=== PATIENT | female | born 1965 | race Caucasian/White ===

== ENCOUNTER 2023-05-20 10:17 | Emergency (ER) | payer BC, SELFPAY ==
[2023-05-20 10:19] VITALS: BP 190/107; PULSE 95; RESP 28; TEMP 35.6; O2SAT 100; BMI 39.0
--- NOTE | 2023-05-20 11:13 | EKG12_ITS ---
Test Reason : HYPERTENSON Blood Pressure : / mmHG Vent. Rate : 078 BPM Atrial Rate : 078 BPM P-R Int : 178 ms QRS Dur : 088 ms QT Int : 420 ms P-R-T Axes : 030 -02 019 degrees QTc Int : 478 ms Normal sinus rhythm Normal ECG Confirmed by MATTHEW BORRERO, FELIPE ([id number]), research editor MAGGIE VALDEZ ([id number]) on 05/22/2023 1:56:42 PM Referred By: JIM Confirmed By:FELIPE CASTRO MD
--- NOTE | 2023-05-20 11:16 | NURSING ---
NO OLD EKGS
[2023-05-20] MEDS: cloNIDine HCl 0.1 MG Tablet PO ×2 (11:30→12:46)
[2023-05-20] MEDS: LORazepam 2 MG/ML Syringe 0.5 MG IV (11:30)
--- NOTE | 2023-05-20 11:30 | RAD_ITS ---
STUDY: X-RAY CHEST REASON FOR EXAM: Female, 58 years old. Hypertension. TECHNIQUE: Single frontal view of the chest. COMPARISON: None. FINDINGS: The lungs are clear and expanded. There is no demonstrated pleural abnormality. Normal size heart. Normal mediastinum and komal. Normal visualized pulmonary arteries. Normal visualized aortic arch and descending thoracic aorta. Normal visualized thoracic spine. Normal visualized ribs, clavicles, and shoulders. No abnormality of the visualized soft tissue structures of the upper abdomen. RAD/Chest 1 View (Portable) IMPRESSION: No active or acute cardiopulmonary disease. Electronically Signed: Santosh Kennedy MD at 11:47 EDT ,
[2023-05-20 11:36] LABS: Absolute Lymphocyte Count 1.33 X10^3/uL (0.83-4.51); Absolute Neutrophil Count 5.2 X10^3/uL (2.0-7.7); Basophil# 0.01 X10^3/uL; Basophil% 0.1 % (0-1); Eosinophil# 0.09 X10^3/uL; Eosinophils% 1.3 % (0-5); Hematocrit 42.5 % (37-47); Hemoglobin 14.1 g/dL (12.0-15.0); Lymphocyte # 1.33 X10^3/ul (0.83-4.51); Mean Corp Hgb Conc 33.2 g/dL (32-36); Mean Corpuscular Hgb 27.9 pg (27.0-32.0); Mean Platelet Vol. 11.3 fl (6.2-12.0); Monocyte# 0.36 X10^3/uL; Monocyte% 5.1 % (0-10); NRBC Flagged by Analyzer 0 % (0-5); Neutrophil # 5.21 X10^3/uL (2.7-7.7); Neutrophil % 74.4 % (47-70); Platelet Count 242 K/mm3 (150-450); RBC Distribution Width CV 13.6 % (11.6-14.6); RBC Distribution Width SD 42.1 fl (35.1-43.9); Red Blood Count 5.06 M/mm3 (4.2-5.4)
--- NOTE | 2023-05-20 12:04 | EDS_ITS ---
HPI History of Present Illness Chief Complaint: Hypertension Informant: patient Onset/Context/Timing Onset: Today Context: Sudden Onset Timing: Continuous Quality: Restless, anxious Location: Generalized Worsened by: Nothing Relieved by: Nothing Narrative Narrative: Patient presents with elevated blood pressure that began today. Patient states she woke up feeling restless and anxious. Patient states it felt like she was having a panic attack. Patient states nothing made it better and nothing made it worse. Patient checked her blood pressure at home and it was over 200 systolic. Patient admits to some nausea. Patient also admits to some urinary frequency. Patient admits to a headache. Patient denies any chest pain or shortness of breath. Patient denies any vomiting. Patient denies any visual changes. [facility] Medical History (Updated 05/20/23 @ 13:[address] Edgar Paulino DO) Hypertension Hypothyroidism IBS (irritable bowel syndrome) Allergy/AdvReac Type Severity Reaction Status Date / Time Sulfa (Sulfonamide Allergy Severe Swelling Verified 05/20/23 10:21 Antibiotics) Surgical History (Updated 05/20/23 @ 12:[address] Edgar Paulino DO) History of hysterectomy Social History Smoking Status: Never smoker ROS ROS ED Constitutional Constitutional ED: Denies chills or fever(s) Eyes Eyes: Denies blurry vision or change in vision ENT ENT ED: Denies rhinorrhea or sore throat Cardiovascular Cardiovascular: Denies chest pain or palpitations Respiratory/Chest Respiratory/Chest: Denies cough or dyspnea Gastrointestinal Gastrointestinal: Reports nausea; Denies vomiting Genitourinary Genitourinary ED: Reports urinary frequency; Denies dysuria or hematuria Musculoskeletal Musculoskeletal: Denies back pain or neck pain Integumentary Denies abscess or rash Neurologic Neurologic: Reports headache(s); Denies weakness Allergic/Immunologic Allergic/Immunologic ED: Denies mouth swelling or urticaria EXAM Physical Exam Const Vital Signs: 05/20/23 10:19 05/20/23 12:45 05/20/23 11:20 Temperature 96.0 F L Temperature Source Temporal Pulse Rate 95 Respiratory Rate 28 H Respiratory Pattern Tachypnea Blood Pressure 190/107 H 155/110 H Blood Pressure Mean 134 125 Pulse Ox 100 Positive well nourished, well developed and obese General Appearance ED: well developed and NAD Nutritional Appearance: obese HEENT Reports moist mucous membranes Neck supple and no JVD Chest Wall palpation of chest normal Resp normal respiratory effort and clear to auscultation bilaterally Cardio regular rate and regular rhythm GI non-tender and non-distended Palpation: soft Extremity normal to inspection General Extremety ED: Negative for edema or tenderness General Extremity: Negative for edema Neuro oriented x3, CN's II-XII intact bilaterally and no sensory deficits noted Sensorium / Orientation: alert Motor Exam: strength 5/5 throughout Psych mental status grossly normal MDM MDM MDM Narrative Medical decision making narrative: Differential diagnosis includes hypertensive urgency, cardiac dysrhythmia, cardiac ischemia, acute kidney injury, and anxiety. EKG will be obtained to assess for cardiac dysrhythmia and cardiac ischemia. Chest x-ray will be obtained to assess for pneumonia and congestive heart failure. Basic metabolic profile will be obtained to assess for electrolyte abnormality and renal function. High-sensitivity troponin will be obtained to assess for cardiac ischemia. Lab Data Attestation: I reviewed the patient's lab results. Lab results narrative: CBC was reviewed and was within normal limits. Basic metabolic profile was reviewed and was within normal limits. High-sensitivity troponin was reviewed and was normal at 6. Labs: Laboratory Results - last 24 hr 05/20/23 11:29 WBC 7.0 RBC 5.06 Hgb 14.1 Hct 42.5 MCV 84.0 MCH 27.9 MCHC 33.2 RDW Std Deviation 42.1 RDW Coeff of Chandni 13.6 Plt Count 242 MPV 11.3 Immature Gran % (Auto) 0.100 Neut % (Auto) 74.4 H Lymph % (Auto) 19.0 [place] % (Auto) 5.1 Eos % (Auto) 1.3 Baso % (Auto) 0.1 Absolute Neuts (auto) 5.2 Absolute Lymphs (auto) 1.33 Nucleated RBC % 0 Sodium 138 Potassium 3.5 Chloride 105 Carbon Dioxide 27.0 Anion Gap 6 BUN 18 Creatinine 0.96 Estim Creat Clear Calc 70.76 Est GFR (MDRD) Af Amer 77 Est GFR (MDRD) Non-Af 64 BUN/Creatinine Ratio 18.7 Glucose 123 H Calcium 9.7 Troponin I High Sens 6 Radiography Chest X-Ray - ED: 1 View, Read by ED Physician, Read by Radiologist and No Acute Disease Diagnostic Testing: Clinical Impression(s) from Imaging Studies Chest X-Ray 05/20/23 11:30 IMPRESSION: No active or acute cardiopulmonary disease. Electronically Signed: Santosh Kennedy MD at 11:47 EDT , Portable 1 view chest x-ray was obtained. On my independent interpretation, lung reza are clear. There is normal cardiac silhouette. Bony thorax is normal. There is no acute process noted. Radiologist also interpreted the x- ray and agrees. EKG Initial EKG: Attestation: I personally reviewed and interpreted this EKG as follows: Interpretation: Sinus Rhythm (78) and No Acute Injury Pattern Comments: EKG was obtained. On my independent interpretation, it showed a normal sinus rhythm with a rate of 78. MI interval, QRS interval, and QTc intervals were all normal. [place] was normal. There are no acute ST or T wave changes. Prior EKG tracings: not available for review Prior: No Prior Treatment and Re-Evaluation :: Patient was given a dose of clonidine here. Patient was given a dose of Ativan. Patient is feeling better on reevaluation. Patient's blood pressure was still 187 systolic on reevaluation. Because of this, patient was given a repeat dose of clonidine. Patient's blood pressure improved to 155/110 after this. Patient was feeling better. Patient was instructed to follow-up with her primary care physician in 5 to 7 days for further management of her blood pressure. Patient was instructed to keep a log of her blood pressures and take it to her primary care physician when she follows up. Patient was instructed to return if worse in any way. Patient understood and was agreeable with the plan. All questions were answered. Discharge Plan Triage Chief Complaint: Hypertension ED Provider: Edgar Paulino Dx/Rx/DC Orders Clinical Impression: Hypertension, Anxiety Instructions: ED Hypertension, Established Primary Care Provider: NOT,DEFINED Referrals: NOT,DEFINED [Primary Care Provider] - Doctor,Your [Non-Staff] - 5-7 Days Disposition Disposition: Home, Self Care
[2023-05-20 12:15] LABS: Anion Gap 6 (5-15); BUN 18 mg/dL (7-18); BUN/Creat Ratio 18.7 RATIO (10-20); Calcium,Total 9.7 mg/dL (8.5-10.1); Chloride 105 mmol/L (98-107); Creatinine, Serum 0.96 mg/dL (0.55-1.02); EST Glomerular Filtration Rate 64 mL/min (>60); Est Glom Filt Rate - Afr Amer 77 mL/min (>60); Estimated Creatinine Clearance 70.76 ml/min; Glucose 123 mg/dL (74-106); Potassium 3.5 mmol/L (3.5-5.1); Sodium Level 138 mmol/L (136-145); Troponin-I HS 6 pg/mL (3.0-54.0)
[2023-05-20 12:45] VITALS: BP 155/110
[2023-05-20 13:50] VITALS: BP 139/95; RESP 16
== END 2023-05-20 13:56 | disposition home or self-care (01) ==
PROVIDERS: Emergency Provider Emergency Medicine; Visit Provider Emergency Medicine
DX: F41.9 Anxiety disorder, unspecified (principal); I10 Essential (primary) hypertension; Z90.710 Acquired absence of both cervix and uterus
CPT/HCPCS: 71045; 80048; 84484; 85025; 93005; 96374; 99284; A4216